=== PATIENT | male | born 1985 | race Caucasian/White ===

== ENCOUNTER 2017-05-06 18:37 | Emergency (ER) | payer SELFPAY ==
[~2017-05-06] VITALS: Ht 177.8 cm; Wt 116.5 kg
[~2017-05-06 18:37] MED LIST: CEPH500C3 PO; IBUP600T26 PO; SULF1TAB47 PO
[2017-05-06 19:24] VITALS: BP 244/125; PULSE 150; RESP 18; TEMP 98; O2SAT 99
--- NOTE | 2017-05-06 20:08 | PD ---
HPI Chief Complaint: Injury Time Seen by Provider: 20:03 Travel History International Travel<30 days: No Contact w/Intl Traveler<30days: No Traveled to known affect area: No History of Present Illness HPI 31-year-old male with history of hypertension, currently not taking any medication, presents the emergency department for evaluation of right ankle pain. Patient states he woke up this morning and he felt like his ankle was swollen. He feels like it might be red on the lateral aspect of the ankle. He denies any injury. Tells me he has been limping all day and the pain is severe , constant, exacerbated with any ambulation. Denies any fever or chills. Denies any alterations in sensations or limitations in range of motion. He has no other symptoms to report. [facility] Past Medical History ADHD: Yes Cardiovascular Problems: Yes (HTN) Diminished Hearing: No Medical other: Yes (Electrocuted 2016) Tetanus Vaccination: Unknown Influenza Vaccination: No Past Surgical History Other Surgery: Yes (Cyst removal ) Social History Alcohol Use: Yes (SOCIALLY) Tobacco Use: No Substance Use: Yes (CBD oil) Allergies-Medications (Allergen,Severity, Reaction): Coded Allergies: penicillin G (Unverified Allergy, Intermediate, 09/23/16) FAMILY HX Reported Meds & Prescriptions Reported Meds & Active Scripts Active No Active Prescriptions or Reported Medications Review of Systems Except as stated in HPI: all other systems reviewed are Neg Physical Exam Narrative GENERAL: Well-nourished male patient, ambulatory with an antalgic gait, in no acute distress SKIN: Focused skin assessment warm/dry. HEAD: Atraumatic. Normocephalic. EYES: Pupils equal and round. No scleral icterus. No injection or drainage. ENT: No nasal bleeding or discharge. Mucous membranes pink and moist. NECK: Trachea midline. No JVD. CARDIOVASCULAR: Tachycardic rate and rhythm. No murmur appreciated. RESPIRATORY: No accessory muscle use. Clear to auscultation. Breath sounds equal bilaterally. GASTROINTESTINAL: Abdomen soft, non-tender, nondistended. Hepatic and splenic margins not palpable. EXTREMITY: The right ankle is not swollen and slightly tender over the lateral aspect but the skin is intact and there is no ligamentous instability. There is no deformity. The foot and toes are warm and well-perfused. Sensation to pain and light touch is intact. NEUROLOGICAL: Awake and alert. No obvious cranial nerve deficits. Motor grossly within normal limits. Normal speech. Data Data Last Documented VS Vital Signs Date Time Temp Pulse Resp B/P (MAP) Pulse Ox O2 Delivery O2 Flow Rate FiO2 05/06/17 21:34 128 17 187/122 (143) 98 Room Air 05/06/17 19:24 98.0 Orders Orders Ankle, Complete ([id number]) (05/06/17 ) Ketorolac Inj (Toradol Inj) (05/06/17 20:15) Sodium Chlor 0.9% 1000 Ml Inj (Ns 1000 M (05/06/17 20:30) Hydralazine Inj (Apresoline Inj) (05/06/17 20:30) Basic Metabolic Panel (Bmp) (05/06/17 21:23) Clonidine (Catapres) (05/06/17 21:30) MDM Medical Decision Making Medical Screen Exam Complete: Yes Emergency Medical Condition: Yes Medical Record Reviewed: Yes Differential Diagnosis Sprain versus fracture versus arthritis versus spur Narrative Course 31-year-old male presents emergency department for evaluation of right ankle pain. Patient is treated for pain and x-ray imaging shows a calcaneal spur, otherwise negative ankle x-ray. Patient when he is here is tachycardic and hypertensive. He does have history of both. In review of his records, patient runs with heart rate greater than 100 typically. He states he did have an energy drink prior to arrival. He also tells me that his blood pressure often runs high. He denies any headache, blurred vision, focal deficits, weakness. Patient is given hydralazine IV 2. BMP is checked. I will give him a dose of clonidine as well. I discussed the patient with my attending physician. We will start him on amlodipine outpatient. He is encouraged to follow-up with a primary care provider and counseled on risk of his blood pressure constantly running this high. He verbalizes understanding and agrees to return immediately with any acute worsening symptoms. Diagnosis Primary Impression: Ankle pain, right Qualified Codes: M25.571 - Pain in right ankle and joints of right foot Additional Impressions: Hypertension Qualified Codes: I10 - Essential (primary) hypertension Tachycardia Referrals: Primary Care Physician Patient Instructions: General Instructions, Heel Spur (ED), Hypertension (DC) Additional Instructions: Miguel Ángel wrap for compression and comfort It is important that you follow-up with your primary care provider. Your blood pressure is too high and you have been started on a medication for this here in the emergency department. It is free at [facility] [place]. Return immediately with any acute worsening symptoms. Med/Other Pt SpecificInfo: Prescription(s) given Scripts Amlodipine (Amlodipine) 10 Mg Tab 10 MG PO DAILY for Blood Pressure Management, #30 TAB 0 Refills Prov: Hilary Alvarez 05/06/17 Disposition: 01 DISCHARGE HOME Condition: Stable Hilary Alvarez May 06, 2017 20:08
[2017-05-06] MEDS ORDERED: KETOROLAC TROMETHAMINE 60 MG/2 ML (IM) VIAL IM ONE (20:15)
[2017-05-06] MEDS ORDERED: hydrALAZINE HCL 20 MG/ML VIAL IV PUSH ONE (20:30)
[2017-05-06] MEDS ORDERED: SODIUM CHLOR 0.9% 1000 ML INJ 1,000 ML IV ONE (20:30)
[2017-05-06 20:57] VITALS: BP 184/115; PULSE 109; RESP 16; O2SAT 97
--- NOTE | 2017-05-06 21:21 | RADRPT ---
EXAM DATE/TIME: 05/06/2017 20:16 [place] COMPARISON: No previous studies available for comparison. INDICATIONS : Right ankle pain with no known injury. MEDICAL HISTORY : None. SURGICAL HISTORY : None. ENCOUNTER: Initial ACUITY: 1 day PAIN SCORE: 10/10 LOCATION: Right lateral ankle. FINDINGS: Three view exam was performed of the right ankle. The bony structures are in normal alignment. No e vidence of fracture, dislocation, or soft tissue swelling. The ankle mortise is intact. Mild calcane al spurs at the plantar aponeurosis and Achilles attachment site are seen. There some mild hypertroph ic change at the distal dorsal talus. No radiopaque foreign bodies are seen. Bony mineralization is normal. CONCLUSION: Calcaneal spurs. Yaw Vann MD on May 06, 2017 at 21:18 Board Certified Radiologist. This report was verified electronically.
[2017-05-06] MEDS ORDERED: cloNIDine HCL 0.1 MG TAB PO ONE (21:30)
[2017-05-06 21:34] VITALS: BP 187/122; PULSE 128; RESP 17; O2SAT 98
[2017-05-06] MEDS ORDERED: AMLO10TA2 PO (21:59)
[2017-05-06 22:15] VITALS: BP 199/115; PULSE 124; RESP 18; O2SAT 97
[2017-05-06] MEDS ORDERED: LORazepam 2 MG/ML VIAL IV PUSH ONE (22:15)
[2017-05-06 22:16] LABS: BICARBONATE 25.9 MEQ/L (21.0-32.0); CALCIUM 8.7 MG/DL (8.5-10.1); CREATININE 1.07 MG/DL (0.60-1.30)
== END 2017-05-07 00:05 | disposition home or self-care (01) ==
LOC: NEPE 18:37
DX: M25.571 Pain in right ankle and joints of right foot (principal); M77.31 Calcaneal spur, right foot; I10 Essential (primary) hypertension; R00.0 Tachycardia, unspecified; F90.9 Attention-deficit hyperactivity disorder, unspecified type; Z88.0 Allergy status to penicillin
CPT/HCPCS: 73610; 80048; 96372; 96374; 96375; 99284; J0360; J1885; J2060; J7030

== ENCOUNTER 2017-08-30 02:40 | Inpatient (IN) ==
[2017-08-30 04:00] LABS: Baso # (Auto) 0.1 th/mm3 (0.0-0.2); Baso % (Auto) 0.9 % (0.0-2.0); Eos # (Auto) 0.1 th/mm3 (0.0-0.4); Eos % (Auto) 0.8 % (0.0-4.0); Hematocrit 46.1 % (39.0-51.0); Hemoglobin 16.5 gm/dL (13.0-17.0); Lymph # (Auto) 1.4 th/mm3 (1.0-4.8); Lymph % (Auto) 15.1 % (9.0-44.0); Mean Corpuscular HGB Conc 35.7 % (32.0-36.0); Mean Corpuscular Hemoglobin 28.5 pg (27.0-34.0); Mean Corpuscular Volume 79.6 fL (80.0-100.0); Mean Platelet Volume 7.8 fL (7.0-11.0); Mono # (Auto) 0.8 th/mm3 (0.0-0.9); Mono % (Auto) 9.2 % (0.0-8.0); Neut # (Auto) 6.7 th/mm3 (1.8-7.7); Platelet Count 236 th/mm3 (150-450); Red Blood Count 5.79 mil/mm3 (4.50-5.90); Red Cell Distribution Width 13.7 % (11.6-17.2); White Blood Count 9.1 th/mm3 (4.0-11.0)
[2017-08-30 04:07] LABS: Activated Partial Thrombo Time 26.8 sec (24.3-30.1); INR 1.1 Ratio; Prothrombin Time 10.7 sec (9.8-11.6)
--- NOTE | 2017-08-30 04:07 | XR ---
EXAM DATE: 08/30/2017 4:00 AM EDT AGE/SEX: 32 years / Male INDICATIONS: Chest pain. CLINICAL DATA: This is the patient's initial encounter. Patient reports that signs and symptoms have been present for 1 day and indicates a pain score of 6/10. MEDICAL/SURGICAL HISTORY: . cervical disk herniation. None. COMPARISON: No prior exams available for comparison. FINDINGS: A single AP view of the chest demonstrates the lungs to be symmetrically hypo-aerated without evidenc e of mass, infiltrate or effusion. The cardiomediastinal contours are unremarkable. Osseous structu res are intact. CONCLUSION: Hypoinflation with no acute cardiopulmonary process Electronically signed by: Bunny Fraser MD 08/30/2017 4:06 AM EDT
[2017-08-30 04:11] LABS: Alanine Aminotransferase 79 U/L (12-78); Albumin 3.8 g/dL (3.4-5.0); Anion Gap 9 meq/L (5-15); Aspartate Aminotransferase 38 U/L (15-37); Blood Urea Nitrogen 12 mg/dL (7-18); Carbon Dioxide 23.8 meq/L (21.0-32.0); Chloride 107 meq/L (98-107); Glomerular Filtration Rate 69 mL/min (>89); Glucose,Random 112 mg/dL (74-106); Magnesium 1.8 mg/dL (1.5-2.5); Potassium 3.4 meq/L (3.5-5.1); Sodium 140 meq/L (136-145)
[2017-08-30 04:15] LABS: Alkaline Phosphatase 81 U/L (45-117); Creatine Kinase 139 U/L (39-308); Total Protein 7.1 g/dL (6.4-8.2)
[2017-08-30 04:23] LABS: Lipase 2190 U/L (73-393)
[2017-08-30 04:28] LABS: Creatine Kinase MB 2.8 ng/mL (0.5-3.6)
[2017-08-30 05:04] LABS: Platelet Estimate Normal (Normal); Platelet Morphology Normal (Normal)
--- NOTE | 2017-08-30 05:07 | ED ---
HPI General Chief complaint: Chest Pain Stated complaint: chest pain Time Seen by Provider: 08/30/17 03:04 Source: patient Mode of arrival: EMS Limitations: no limitations History of Present Illness HPI narrative: The patient is a 32 year old male who presents to the [facility] emergency department with a history of chest pain that began at 1 AM when he was walking around [facility] with a friend prior to arrival. The patient reports that the pain is in the center of his chest. He reports that is been constant since onset. He reports that it waxes and wanes in severity. He reports that it feels like a pounding sensation. He reports that he had shortness of breath associated with this along with lightheaded sensation. He denies having any radiation of pain, diaphoresis, nausea, or vomiting. The patient denies ever having a pain like this previously. The patient reports that he does have a history of hypertension, however he is not currently on any medication since May due to losing his insurance. He denies having a primary care physician. The patient arrives by ambulance services. The patient's blood pressure was reportedly initially 250 systolic. The patient was given 2 sublingual nitroglycerin sprays his blood pressure improved down to 140 systolic. On arrival, the patient's blood pressure is in the 170s. The patient has a heart rate in the 1 teens to low 120s. The patient denies any drug use. He reports that he does have a history of anxiety and was Klonopin previously for this. He reports that he is now on CBD oil for this. On review of systems otherwise, the patient denies having any known recent fevers, cough or congestion, new neck pain, abdominal pain, diarrhea, urinary symptoms, or neurologic symptoms. Related Data Home Medications Medication Instructions Recorded Confirmed No Known Home Medications 08/30/17 08/30/17 Allergies Allergy/AdvReac Type Severity Reaction Status Date / Time penicillin G Allergy Intermediate Swelling Verified 08/30/17 03:36 Review of Systems ROS Unobtainable All other systems reviewed negative except as stated in HPI [facility] Medical History Medical History Anxiety (Acute) Herniated disc (Acute) Hypertension (Acute) Surgical History Surgical History H/O cervical discectomy (Acute) Social History Social History Substance History: No History of Abuse Second Hand Smoke Exposure: No Smoking Status: Former smoker Tobacco Type: Cigarettes Smoking End Date: quit 11/2016 How Often Do You Have a Drink Containing Alcohol: Monthly or less Recent Travel in [facility] within the Last 8 Weeks: No Recent Out of Country Travel within the Last 8 Weeks: No Immunization History Tetanus Immunization: Unsure Hx Influenza Vaccine This Season: No Exam Const General: cooperative, no acute distress and well developed Nutritional Appearance: well nourished Orientation: alert, awake and oriented x3 HENMT Head: normocephalic and atraumatic Nose: no nasal discharge and no epistaxis Mouth: moist mucous membranes Throat: posterior oropharynx normal Eyes Sclera: normal sclerae Pupils: PERRL Neck Neck: no meningeal signs, trachea midline and no JVD Resp Effort & Inspection: no use of accessory muscles Auscultation: clear to auscultation bilaterally Cardio Rate: regular rate Rhythm: regular rhythm Heart Sounds: no murmurs GI Inspection: non-distended Palpation: soft, no hepatosplenomegaly, no guarding, no masses, not rigid and nontender Auscultation: normal bowel sounds Back/Spine/Pelvis Back: CVA tenderness Cervical Spine: No cervical spinal tenderness Thoracic/Lumbar Spine: No thoracic spinal tenderness and No lumbar spinal tenderness Skin General: dry skin (warm) Neuro General: alert, awake and oriented x3 Cranial Nerves: other (No facial asymmetry.) Speech: speech normal Motor: no movement abnormalities noted Extrem General: normal to inspection, no clubbing, no cyanosis and no edema Psych Mood: congruent mood Affect: normal affect Judgment: judgment good Course Consultations Consultation #1: The patient's case including history, pertinent physical examination findings, and laboratory studies were discussed with Dr. Moran. It was agreed that the patient would be admitted to the hospitalist service. Initial Documented Vital Signs Temperature 98.5 F 08/30/17 02:43 Pulse Rate 140 H 08/30/17 02:43 Respiratory Rate 20 08/30/17 02:43 Blood Pressure 162/96 H 08/30/17 02:43 Pulse Oximetry 94 L 08/30/17 02:43 Last Documented Vital Signs Temperature 98.4 F 08/30/17 16:00 Pulse Rate 109 H 08/30/17 16:00 Respiratory Rate 16 08/30/17 16:00 Blood Pressure 134/77 08/30/17 17:40 Pulse Oximetry 97 08/30/17 16:00 Medical Decision Making MDM Narrative Medical decision making narrative: During the course of the patient's emergency department visit, the patient's history, examination, and differential diagnosis were reviewed with the patient. The patient was placed on a monitoring tech with oximetry and frequent blood pressure monitoring. The patient had IV access obtained and blood work sent for analysis. The patient's diagnostic workup was started to evaluate for underlying causes of the patient's chest pain. The patient was initially provided sublingual nitroglycerin, nitroglycerin 1 inch the chest wall, aspirin 324 mg p.o. 1. Laboratory studies are remarkable for his CMP that shows a chemistry within normal troponin I, CPK 139, MB 2.8, glucose 112, potassium 3.4, lipase is elevated at 2190 which certainly could be the cause of the patient's pain. Calcium 8, AST 20 is 38, ALT 79. CT scan of the abdomen and pelvis has been ordered to further evaluate the patient's pancreatitis. The patient's results were discussed with the patient, including the plan of care. I explained that further testing and/ or monitoring is indicated based on the patient's history, examination, and/ or laboratory findings. Therefore, I recommended admission for additional evaluation. The patient expressed understanding and was agreeable with this plan. The patient was admitted to the hospital in stable condition and sent to a bed under the care of [facility] service. Medical Records Medical records reviewed: Yes I reviewed the patient's medical records. Lab Data Lab results reviewed: Yes I reviewed the patient's lab results. Result diagrams: 08/30/17 03:38 08/30/17 03:38 Lab Results 08/30/17 08/30/17 08/30/17 Range/Units 03:38 03:38 03:38 WBC 9.1 (4.0-11.0) th/mm3 RBC 5.79 (4.50-5.90) mil/mm3 Hgb 16.5 (13.0-17.0) gm/dL Hct 46.1 (39.0-51.0) % MCV 79.6 L (80.0-100.0) fL MCH 28.5 (27.0-34.0) pg MCHC 35.7 (32.0-36.0) % RDW 13.7 (11.6-17.2) % Plt Count 236 (150-450) th/mm3 MPV 7.8 (7.0-11.0) fL Prelim Diff (Auto) Slide review pending Neut % (Auto) 74.0 H (16.0-70.0) % Lymph % (Auto) 15.1 (9.0-44.0) % Meade % (Auto) 9.2 H (0.0-8.0) % Eos % (Auto) 0.8 (0.0-4.0) % Baso % (Auto) 0.9 (0.0-2.0) % Neut # (Auto) 6.7 (1.8-7.7) th/mm3 Lymph # (Auto) 1.4 (1.0-4.8) th/mm3 Meade # (Auto) 0.8 (0.0-0.9) th/mm3 Eos # (Auto) 0.1 (0.0-0.4) th/mm3 Baso # (Auto) 0.1 (0.0-0.2) th/mm3 WBC Differential . Diff Scan Auto diff confirmed Differential Comment . Platelet Estimate Normal (Normal) Platelet Morphology Normal (Normal) PT 10.7 (9.8-11.6) sec INR 1.1 Ratio APTT 26.8 (24.3-30.1) sec Sodium 140 (136-145) meq/L Potassium 3.4 L (3.5-5.1) meq/L Chloride 107 (98-107) meq/L Carbon Dioxide 23.8 (21.0-32.0) meq/L Anion Gap 9 (5-15) meq/L BUN 12 (7-18) mg/dL Creatinine 1.21 (0.60-1.30) mg/dL Estimated GFR 69 L (>89) mL/min Random Glucose 112 H (74-106) mg/dL Calcium 8.0 L (8.5-10.1) mg/dL Magnesium 1.8 (1.5-2.5) mg/dL Total Bilirubin 0.5 (0.2-1.0) mg/dL AST 38 H (15-37) U/L ALT 79 H (12-78) U/L Alkaline Phosphatase 81 (45-117) U/L Total Creatine Kinase 139 (39-308) U/L CK-MB (CK-2) 2.8 (0.5-3.6) ng/mL Troponin I Less than 0.02 L (0.02-0.05) ng/mL B-Natriuretic Peptide (0-100) pg/mL Total Protein 7.1 (6.4-8.2) g/dL Albumin 3.8 (3.4-5.0) g/dL Lipase 2190 H (73-393) U/L Urine Color (Yellw/Straw) Urine Clarity (Clear) Urine pH (5.0-8.5) Ur Specific Narrows (1.002-1.035) Urine Protein (Neg-Trace) mg/dL Urine Glucose (UA) (Negative) mg/dL Urine Ketones (Negative) mg/dL Urine Occult Blood (Negative) Urine Nitrate (Negative) Urine Bilirubin (Negative) Urine Urobilinogen (Less than 2) mg/dL Ur Leukocyte Esterase (Negative) Uric Acid Crystals (None) /hpf Urine Mucus (Occasional) /lpf Micro UA Comment Urine Culture Comments Urine Opiates Screen (Neg) Ur Barbiturates Screen (Neg) Ur Amphetamines Screen (Neg) U Benzodiazepines Scrn (Neg) Urine Cocaine Screen (Neg) U Cannabinoids Screen (Neg) Hepatitis A IgM Ab (Nonreactive) Hep Bs Antigen (Nonreactive) Hep B Core IgM Ab (Nonreactive) Hep C IgG Ab (Nonreactive) 08/30/17 08/30/17 08/30/17 Range/Units 03:38 06:00 06:00 WBC (4.0-11.0) th/mm3 RBC (4.50-5.90) mil/mm3 Hgb (13.0-17.0) gm/dL Hct (39.0-51.0) % MCV (80.0-100.0) fL MCH (27.0-34.0) pg MCHC (32.0-36.0) % RDW (11.6-17.2) % Plt Count (150-450) th/mm3 MPV (7.0-11.0) fL Prelim Diff (Auto) Neut % (Auto) (16.0-70.0) % Lymph % (Auto) (9.0-44.0) % Meade % (Auto) (0.0-8.0) % Eos % (Auto) (0.0-4.0) % Baso % (Auto) (0.0-2.0) % Neut # (Auto) (1.8-7.7) th/mm3 Lymph # (Auto) (1.0-4.8) th/mm3 Meade # (Auto) (0.0-0.9) th/mm3 Eos # (Auto) (0.0-0.4) th/mm3 Baso # (Auto) (0.0-0.2) th/mm3 WBC Differential Diff Scan Differential Comment Platelet Estimate (Normal) Platelet Morphology (Normal) PT (9.8-11.6) sec INR Ratio APTT (24.3-30.1) sec Sodium (136-145) meq/L Potassium (3.5-5.1) meq/L Chloride (98-107) meq/L Carbon Dioxide (21.0-32.0) meq/L Anion Gap (5-15) meq/L BUN (7-18) mg/dL Creatinine (0.60-1.30) mg/dL Estimated GFR (>89) mL/min Random Glucose (74-106) mg/dL Calcium (8.5-10.1) mg/dL Magnesium (1.5-2.5) mg/dL Total Bilirubin (0.2-1.0) mg/dL AST (15-37) U/L ALT (12-78) U/L Alkaline Phosphatase (45-117) U/L Total Creatine Kinase (39-308) U/L CK-MB (CK-2) (0.5-3.6) ng/mL Troponin I (0.02-0.05) ng/mL B-Natriuretic Peptide Less than 2 (0-100) pg/mL Total Protein (6.4-8.2) g/dL Albumin (3.4-5.0) g/dL Lipase (73-393) U/L Urine Color Yellow (Yellw/Straw) Urine Clarity Hazy H (Clear) Urine pH 5.0 (5.0-8.5) Ur Specific [place] 1.020 (1.002-1.035) Urine Protein Negative (Neg-Trace) mg/dL Urine Glucose (UA) Negative (Negative) mg/dL Urine Ketones Negative (Negative) mg/dL Urine Occult Blood Negative (Negative) Urine Nitrate Negative (Negative) Urine Bilirubin Negative (Negative) Urine Urobilinogen Less than 2 (Less than 2) mg/dL Ur Leukocyte Esterase Negative (Negative) Uric Acid Crystals Few H (None) /hpf Urine Mucus Few H (Occasional) /lpf Micro UA Comment Culture not ind Urine Culture Comments Culture not ind Urine Opiates Screen Neg (Neg) Ur Barbiturates Screen Neg (Neg) Ur Amphetamines Screen Neg (Neg) U Benzodiazepines Scrn Neg (Neg) Urine Cocaine Screen Neg (Neg) U Cannabinoids Screen Neg (Neg) Hepatitis A IgM Ab (Nonreactive) Hep Bs Antigen (Nonreactive) Hep B Core IgM Ab (Nonreactive) Hep C IgG Ab (Nonreactive) 08/30/17 08/30/17 08/30/17 Range/Units 10:40 12:25 13:44 WBC (4.0-11.0) th/mm3 RBC (4.50-5.90) mil/mm3 Hgb (13.0-17.0) gm/dL Hct (39.0-51.0) % MCV (80.0-100.0) fL MCH (27.0-34.0) pg MCHC (32.0-36.0) % RDW (11.6-17.2) % Plt Count (150-450) th/mm3 MPV (7.0-11.0) fL Prelim Diff (Auto) Neut % (Auto) (16.0-70.0) % Lymph % (Auto) (9.0-44.0) % Meade % (Auto) (0.0-8.0) % Eos % (Auto) (0.0-4.0) % Baso % (Auto) (0.0-2.0) % Neut # (Auto) (1.8-7.7) th/mm3 Lymph # (Auto) (1.0-4.8) th/mm3 Meade # (Auto) (0.0-0.9) th/mm3 Eos # (Auto) (0.0-0.4) th/mm3 Baso # (Auto) (0.0-0.2) th/mm3 WBC Differential Diff Scan Differential Comment Platelet Estimate (Normal) Platelet Morphology (Normal) PT (9.8-11.6) sec INR Ratio APTT (24.3-30.1) sec Sodium (136-145) meq/L Potassium (3.5-5.1) meq/L Chloride (98-107) meq/L Carbon Dioxide (21.0-32.0) meq/L Anion Gap (5-15) meq/L BUN (7-18) mg/dL Creatinine (0.60-1.30) mg/dL Estimated GFR (>89) mL/min Random Glucose (74-106) mg/dL Calcium (8.5-10.1) mg/dL Magnesium (1.5-2.5) mg/dL Total Bilirubin (0.2-1.0) mg/dL AST (15-37) U/L ALT (12-78) U/L Alkaline Phosphatase (45-117) U/L Total Creatine Kinase (39-308) U/L CK-MB (CK-2) (0.5-3.6) ng/mL Troponin I Less than 0.02 L Less than 0.02 L (0.02-0.05) ng/mL B-Natriuretic Peptide (0-100) pg/mL Total Protein (6.4-8.2) g/dL Albumin (3.4-5.0) g/dL Lipase (73-393) U/L Urine Color (Yellw/Straw) Urine Clarity (Clear) Urine pH (5.0-8.5) Ur Specific [place] (1.002-1.035) Urine Protein (Neg-Trace) mg/dL Urine Glucose (UA) (Negative) mg/dL Urine Ketones (Negative) mg/dL Urine Occult Blood (Negative) Urine Nitrate (Negative) Urine Bilirubin (Negative) Urine Urobilinogen (Less than 2) mg/dL Ur Leukocyte Esterase (Negative) Uric Acid Crystals (None) /hpf Urine Mucus (Occasional) /lpf Micro UA Comment Urine Culture Comments Urine Opiates Screen (Neg) Ur Barbiturates Screen (Neg) Ur Amphetamines Screen (Neg) U Benzodiazepines Scrn (Neg) Urine Cocaine Screen (Neg) U Cannabinoids Screen (Neg) Hepatitis A IgM Ab Nonreactive (Nonreactive) Hep Bs Antigen Nonreactive (Nonreactive) Hep B Core IgM Ab Nonreactive (Nonreactive) Hep C IgG Ab Nonreactive (Nonreactive) Imaging Data Radiologist's impression: Gallbladder Ultrasound 08/30/17 00:00 CONCLUSION: 1. Suboptimal visualization. 2. Hepatic steatosis with no focal lesion identified. 3. Unremarkable appearing gallbladder with no evidence of cholelithiasis. 4. Horseshoe kidney. Chest X-Ray 08/30/17 03:23 CONCLUSION: Hypoinflation with no acute cardiopulmonary process Abdomen/Pelvis CT 08/30/17 05:23 CONCLUSION: 1. Diffuse hepatic fatty infiltration. 2. Horseshoe kidney. 3. 6.6 cm left inguinal hernia which only contains fat. 4. Otherwise, no acute intraperitoneal or pelvic process to explain current clinical symptoms. ECG Data Attestation: I personally reviewed and interpreted this ECG as follows: Interpretation: The patient had an EKG done on arrival. The patient's EKG reveals a sinus tachycardia rate 120, QRS duration 101 ms, QTC [address] segment elevation, nonspecific ST-T wave abnormalities including T- wave inversions in leads I, aVL, V5, V6. Discharge Plan Discharge Disposition Patient Disposition: 30 Still Patient Discharge Details Diagnosis: Acute pancreatitis, Atypical chest pain Physicians Team ED Provider: Carol Mata Primary Care Provider: Primary Care Michelle Valadez Attending Provider: Geovani Lazo Discharge Interventions Interventions: ED Discharge Assessment Last Done: 08/30/17 08:18 Status ED Status: Left Department Discharge Information Discharge Date/Time: 08/30/17 08:19
[2017-08-30] MEDS ORDERED: Labetalol HCl Inj 100 MG/20 ML Vial IV.PUSH ONE (05:20)
[2017-08-30] MEDS ORDERED: Sod Chloride 0.9% Inj 1,000 ML IV.SIG ONE (05:25)
[2017-08-30] MEDS ORDERED: Morphine Inj 4 MG/ML Vial IV.PUSH ONE (05:25)
[2017-08-30] MEDS ORDERED: Temazepam 15 MG Capsule PO PRN (05:56)
[2017-08-30] MEDS ORDERED: Bisacodyl 10 MG Supp RECTAL PRN (05:56)
--- NOTE | 2017-08-30 06:19 | CT ---
EXAM DATE: 08/30/2017 6:05 AM EDT AGE/SEX: 32 years / Male INDICATIONS: Epigastric pain; possible pancreatitis. CLINICAL DATA: This is the patient's initial encounter. Patient reports that signs and symptoms have been present for 1 day and indicates a pain score of 7/10. MEDICAL/SURGICAL HISTORY: None. None. ORAL CONTRAST: No oral contrast ingested. RADIATION DOSE: 19.99 CTDI (mGy) COMPARISON: No prior exams available for comparison. TECHNIQUE: Multiple contiguous axial images were obtained through the abdomen and pelvis following b olus infusion of 96 ml Omnipaque 350 (iohexol) nonionic water-soluble contrast as a single exam dos e. No oral contrast ingested. Using automated exposure control and adjustment of the mA and/or kV ac cording to patient size, radiation dose was kept as low as reasonably achievable to obtain optimal di agnostic quality images. DICOM format image data is available electronically for review and comparis on. FINDINGS: Lower Lungs: The visualized lower lungs are clear. Liver: Diminished attenuation characteristic of diffuse hepatic fatty infiltration Spleen: Homogeneous density without enlargement. Pancreas: Unremarkable without mass or calcification. Kidneys: Horseshoe kidney. Otherwise intact Adrenal Glands: Unremarkable. Aorta: The aorta and proximal iliac vessels are grossly unremarkable without aneurysmal dilation. Bowel/Mesentery: The bowel loops are grossly unremarkable. The cecum and sigmoid colon have a normal configuration. Abdominal Wall: Intact. Retroperitoneum: No evidence of adenopathy in the retrocrural, para-aortic, or deep pelvic regions. Bladder: Contours are smooth. Reproductive Organs: No abnormal masses or calcifications seen. Inguinal: Large, explaining 6 cm left inguinal hernia which only contains fat Bony Structures: Unremarkable. Post Contrast: No abnormal areas of enhancement seen. CONCLUSION: 1. Diffuse hepatic fatty infiltration. 2. Horseshoe kidney. 3. 6.6 cm left inguinal hernia which only contains fat. 4. Otherwise, no acute intraperitoneal or pelvic process to explain current clinical symptoms. Electronically signed by: Bunny Fraser MD 08/30/2017 6:17 AM EDT
[2017-08-30 06:36] LABS: Amphetamine Screen,Urine Neg (Neg); Barbiturate Screen,Urine Neg (Neg); Cannabinoid Screen,Urine Neg (Neg); Cocaine Screen,Urine Neg (Neg)
[2017-08-30 06:38] LABS: Bilirubin,Urine Negative (Negative); Clarity,Urine Hazy (Clear); Color,Urine Yellow (Yellw/Straw); Glucose,Urine (UA) Negative (Negative); Leukocyte Esterase,Urine Negative (Negative); Mucus,Urine Few /lpf (Occasional); Nitrite,Urine Negative (Negative); Uric Acid Crystals,Urine Few /hpf
[2017-08-30 06:40] LABS: Opiate Screen,Urine Neg (Neg)
--- NOTE | 2017-08-30 09:27 | P.HPIM ---
History of Present Illness Primary Care Physician: No Primary Care Physician Chief Complaint: chest pain History of Present Illness: patient is a 32 y/o male with history of hypertension, non-compliant with the medications, presented to ER with chest pain. he says that the pain started last night. pain was midsternal with no radiation.he denies any nausea,vomiting , sob or diaphoresis. he doesn't recall any similar chest pain in the past. he says that he was on some blood pressure medication for one month, but then he lost his insurance and since then he hasn't been on any medications. Inpatient Certification: I certify that the inpatient services were ordered in accordance with Medicare regulations governing the order. This includes certification that hospital inpatient services are reasonable and necessary and in the case of services not specified as inpatient-only under 42 CFR 419.22(n), that they are appropriately provided as inpatient services in accordance to with the 2-midnight benchmark under 43 CFR 412.3(e) Estimated Total Length of Stay (Days): 2 Plans for Post Hospital Care: Not yet determined Review of Systems All other systems reviewed negative except as stated in [facility]PI [facility] - History History Provided By: Patient - Medical History Medical History: Medical History (Last Updated 08/30/17 @ 02:47 by Michaela Moreno) Anxiety Herniated disc Hypertension - Surgical History Surgical History: Surgical History (Last Updated 08/30/17 @ 02:47 by Michaela Moreno) H/O cervical discectomy - Tobacco History Tobacco Use In Past 30 Days: No Smoking Status: Former smoker Smoking End Date: quit 11/2016 - Alcohol History How Often Do You Have a Drink Containing Alcohol: Monthly or less - Substance Use History Substance History: No History of Abuse - Travel History Recent Travel in the [place] Within the Last 8 Weeks: No Recent Travel Out of the Country Within the Last 8 Weeks: No - Immunization History Tetanus Immunization: Unsure Hx Influenza Vaccine This Season: No Medications and Allergies Active Medications: Active Medications Al Hydroxide/Mg Hydroxide (Milk Of Magncarina Liq) 30 ml PO Q12H PRN PRN Reason: Mild Constipation Bisacodyl (Dulcolax Supp) 10 mg RECTAL DAILY PRN PRN Reason: SEVERE CONSITIPATION Sodium Chloride (Ns Inj) 1,000 mls @ 125 mls/hr IV.CONT .Q8H VERONICA Potassium Chloride (Kcl 10 Meq Premix Inj) 10 meq in 100 mls @ 100 mls/hr IV.SIG Q1H VERONICA Stop: 08/30/17 09:59 Lactulose (Lactulose Liq) 30 ml PO DAILY PRN PRN Reason: SEVERE CONSITIPATION Ondansetron HCl (Zofran Odt) 4 mg PO Q6H PRN PRN Reason: NAUSEA OR VOMITING Senna/Docusate Sodium (Melvi-Colace) 1 tab PO BID VERONICA Sennosides (Senokot) 17.2 mg PO Q12H PRN PRN Reason: Moderate Constipation Sodium Chloride (Ns Flush) 2 ml IV.FLUSH UNSCH PRN PRN Reason: FLUSH AFTER USING IV ACCESS Temazepam (Restoril) 15 mg PO HS PRN PRN Reason: INSOMNIA Allergies Allergy/AdvReac Type Severity Reaction Status Date / Time penicillin G Allergy Intermediate Swelling Verified 08/30/17 03:36 Home Medications Medication Instructions Recorded Confirmed Type No Known Home Medications 08/30/17 08/30/17 History Exam Vital signs: Vital Signs 08/30/17 02:43 08/30/17 04:18 08/30/17 06:03 Temperature 98.5 F Pulse Rate 140 H 115 H Respiratory Rate 20 20 Blood Pressure 162/96 H 160/92 H Pulse Oximetry 94 L 95 96 08/30/17 06:50 08/30/17 07:10 08/30/17 08:59 Temperature 98.4 F Pulse Rate 95 H 92 H 105 H Respiratory Rate 18 20 16 Blood Pressure 142/85 H 145/86 H 175/99 H Pulse Oximetry 98 96 97 Intake & Output 08/29/17 08/30/17 08/30/17 18:59 06:59 18:59 Weight 122.47 kg - Constitutional no acute distress - Routine Neck Exam Present: supple, full ROM - Routine Chest/Breast/Axilla Exam Chest wall: Present: tenderness - Routine Respiratory Exam Present: CTA bilaterally - Routine Cardiovascular Exam Present: RRR - Routine Abdominal Exam Present: soft - Routine Extremities Exam Comments: no pedal edema. - Routine Neurological Exam Present: alert, oriented X3 Results - Labs CBC & Chem 7: 08/30/17 03:38 08/30/17 03:38 Labs: Short CBC 08/30/17 Range/Units 03:38 WBC 9.1 (4.0-11.0) th/mm3 Hgb 16.5 (13.0-17.0) gm/dL Hct 46.1 (39.0-51.0) % Plt Count 236 (150-450) th/mm3 BMP 08/30/17 03:38 Sodium 140 Potassium 3.4 L Chloride 107 Carbon Dioxide 23.8 BUN 12 Creatinine 1.21 Calcium 8.0 L Cardiac Enzymes 08/30/17 Range/Units 03:38 Total Creatine Kinase 139 (39-308) U/L CK-MB (CK-2) 2.8 (0.5-3.6) ng/mL Troponin I Less than 0.02 L (0.02-0.05) ng/mL Liver Function 08/30/17 Range/Units 03:38 Total Bilirubin 0.5 (0.2-1.0) mg/dL AST 38 H (15-37) U/L ALT 79 H (12-78) U/L Alkaline Phosphatase 81 (45-117) U/L Albumin 3.8 (3.4-5.0) g/dL Urine 08/30/17 Range/Units 06:00 Urine Color Yellow (Yellw/Straw) Urine Clarity Hazy H (Clear) Urine pH 5.0 (5.0-8.5) Ur Specific Neligh 1.020 (1.002-1.035) Urine Protein Negative (Neg-Trace) mg/dL Urine Glucose (UA) Negative (Negative) mg/dL - Imaging Impressions Chest X-Ray 08/30/17 03:23 CONCLUSION: Hypoinflation with no acute cardiopulmonary process Abdomen/Pelvis CT 08/30/17 05:23 CONCLUSION: 1. Diffuse hepatic fatty infiltration. 2. Horseshoe kidney. 3. 6.6 cm left inguinal hernia which only contains fat. 4. Otherwise, no acute intraperitoneal or pelvic process to explain current clinical symptoms. Caprini VTE Risk Assessment Caprini VTE Risk Assessment: No/Low Risk (score <= 1) Caprini Risk Assessment Model: Point Value = 1 Point Value = 2 Point Value = 3 Point Value = 5 Age 41-60 Minor surgery BMI > 25 kg/m2 Swollen legs Varicose veins or History of unexplained or recurrent spontaneous Oral contraceptives or hormone replacement Sepsis (< 1 month) Serious lung disease, including pneumonia (< 1 month) Abnormal pulmonary function Acute myocardial infarction Congestive heart failure (< 1 month) History of inflammatory bowel disease Medical patient at bed rest Age 61-74 Arthroscopic surgery Major open surgery (> 45 min) Laparoscopic surgery (> 45 min) Malignancy Confined to bed (> 72 hours) Immobilizing plaster cast Central venous access Age >= 75 History of VTE Family history of VTE Factor V Leiden Prothrombin [id number] Lupus anticoagulant Anticardiolipin antibodies Elevated serum homocysteine Heparin-induced thrombocytopenia Other congenital or acquired thrombophilia Stroke (< 1 month) Elective arthroplasty Hip, pelvis, or leg fracture Acute spinal cord injury (< 1 month) Prophylaxis Regimen: Total Risk Factor Score Risk Level Prophylaxis Regimen 0-1 Low Early ambulation 2 Moderate Order ONE of the following: *Sequential Compression Device (SCD) *Heparin 5000 units SQ BID 3-4 Higher Order ONE of the following medications: *Heparin 5000 units SQ TID *Enoxaparin/Lovenox 40 mg SQ daily (WT < 150 kg, CrCl > 30 mL/min) *Enoxaparin/Lovenox 30 mg SQ daily (WT < 150 kg, CrCl > 10-29 mL/min) *Enoxaparin/Lovenox 30 mg SQ BID (WT < 150 kg, CrCl > 30 mL/min) AND/OR *Sequential Compression Device (SCD) 5 or more Highest Order ONE of the following medications: *Heparin 5000 units SQ TID (Preferred with Epidurals) *Enoxaparin/Lovenox 40 mg SQ daily (WT < 150 kg, CrCl > 30 mL/min) *Enoxaparin/Lovenox 30 mg SQ daily (WT < 150 kg, CrCl > 10-29 mL/min) *Enoxaparin/Lovenox 30 mg SQ BID (WT < 150 kg, CrCl > 30 mL/min) AND *Sequential Compression Device (SCD) Assessment and Plan - Plan A/P - acute pancreatitis start on clear liquid diet- continue with supportive care including IV fluid- check GB sonogram- -chest pain repeat the troponin level- will consider stress test. -elevated LFT's- check the hepatitis panel. liver US. -hypertension; start on Amlodipine. continue to monitor. Discharge Planning: when w/u is completed.
[2017-08-30] MEDS: Senna/Docusate Sodium 8.6/50 MG Tablet PO SCH ×2 (10:14→21:44)
[2017-08-30] MEDS: amLODIPine 5 MG Tablet PO SCH (10:17)
[2017-08-30] MEDS: Sod Chloride 0.9% Inj 1,000 ML IV.CONT SCH ×3 (11:24→19:30)
[2017-08-30] MEDS: Potassium Chlor 10 mEq Premix 10 MEQ/100 ML PIGGYBACK IV.SIG SCH ×3 (11:24→14:50)
--- NOTE | 2017-08-30 11:56 | US ---
EXAM DATE: 08/30/2017 11:25 AM EDT AGE/SEX: 32 years / Male INDICATIONS: Right upper quadrant pain. Or shoe kidney seen on CT. CLINICAL DATA: This is the patient's initial encounter. Patient reports that signs and/or symptoms h ave been present for 1 day and indicates a pain score of 6/10. MEDICAL/SURGICAL HISTORY: Hypertension. Anxiety. Herniated disc. Discectomy, cervical. COMPARISON: [facility] [place] PELVIS W CONTRAST, 08/30/2017. . MEASUREMENTS: Liver:__ 15.3 cm. Common Bile Duct:__ Nonvisualized. FINDINGS: Utilization was suboptimal secondary to overlying bowel gas and patient's body habitus. Liver: Increased in echotexture without focal lesion or ductal dilation. Portal Vein: Portal vein flow not visualized. Common Duct: Could not be visualized. Gallbladder: Demonstrates no wall thickening or pericholecystic fluid. No stones visualized. Pancreas: Not well visualized. Right Kidney: Normal echotexture and cortical thickness. No mass or hydronephrosis. A horseshoe kidn ey is again visualized. Other: None. CONCLUSION: 1. Suboptimal visualization. 2. Hepatic steatosis with no focal lesion identified. 3. Unremarkable appearing gallbladder with no evidence of cholelithiasis. 4. Horseshoe kidney. Electronically signed by: Porfirio Ramos MD 08/30/2017 11:55 AM EDT
[2017-08-30 14:30] LABS: Hepatitits B Surface Antigen Nonreactive (Nonreactive)
[2017-08-30 14:37] LABS: Hepatitis A IgM Antibody Nonreactive (Nonreactive)
[2017-08-30] MEDS ORDERED: Potassium Chlor 10 mEq Premix 10 MEQ/100 ML PIGGYBACK IV.SIG SCH (14:45)
--- NOTE | 2017-08-30 23:45 | ECG ---
Date Performed: 08/30/2017 Time Performed: 03:12:17 PTAGE: 32 years EKG: SINUS TACHYCARDIA ST DEVIATION AND MODERATE T-WAVE ABNORMALITY, CONSIDER LATERAL ISCHEMIA A BNORMAL ECG PREVIOUS TRACING : 02/03/2013 20.14 Since the previous tracing, no significant change noted DOCTOR: Jd Denney Interpretating Date/Time 08/30/2017 23:42:56
[2017-08-31] MEDS: Sod Chloride 0.9% Inj 1,000 ML IV.CONT SCH ×2 (03:16→12:13)
[2017-08-31 06:01] LABS: Baso # (Auto) 0.1 th/mm3 (0.0-0.2); Baso % (Auto) 0.6 % (0.0-2.0); Eos # (Auto) 0.2 th/mm3 (0.0-0.4); Eos % (Auto) 1.3 % (0.0-4.0); Hematocrit 46.7 % (39.0-51.0); Hemoglobin 16.4 gm/dL (13.0-17.0); Lymph # (Auto) 2.5 th/mm3 (1.0-4.8); Lymph % (Auto) 17.8 % (9.0-44.0); Mean Corpuscular Hemoglobin 27.8 pg (27.0-34.0); Mean Corpuscular Volume 79.2 fL (80.0-100.0); Mean Platelet Volume 7.6 fL (7.0-11.0); Mono # (Auto) 1.5 th/mm3 (0.0-0.9); Mono % (Auto) 10.6 % (0.0-8.0); Neut # (Auto) 9.6 th/mm3 (1.8-7.7); Neut % (Auto) 69.7 % (16.0-70.0); Platelet Count 239 th/mm3 (150-450); Red Cell Distribution Width 13.9 % (11.6-17.2); White Blood Count 13.8 th/mm3 (4.0-11.0)
[2017-08-31 06:24] LABS: Alanine Aminotransferase 67 U/L (12-78); Albumin 3.7 g/dL (3.4-5.0); Anion Gap 7 meq/L (5-15); Aspartate Aminotransferase 24 U/L (15-37); Blood Urea Nitrogen 9 mg/dL (7-18); Calcium 8.1 mg/dL (8.5-10.1); Carbon Dioxide 23.9 meq/L (21.0-32.0); Chloride 107 meq/L (98-107); Glomerular Filtration Rate 84 mL/min (>89); Glucose,Random 97 mg/dL (74-106); Lipase 130 U/L (73-393); Potassium 3.7 meq/L (3.5-5.1); Sodium 138 meq/L (136-145)
[2017-08-31 06:25] LABS: Alkaline Phosphatase 87 U/L (45-117); Total Protein 7.1 g/dL (6.4-8.2)
[2017-08-31] MEDS: amLODIPine 5 MG Tablet PO SCH (08:09)
[2017-08-31] MEDS: Senna/Docusate Sodium 8.6/50 MG Tablet PO SCH ×2 (08:10→21:07)
--- NOTE | 2017-08-31 10:42 | P.PNIM ---
Subjective Interval history: in no acute distress. denies abdominal pain, nausea or vomiting. no chest pain or sob. Physical Exam Vital signs: Vital Signs 08/30/17 12:00 08/30/17 13:24 08/30/17 16:00 Temperature 97.9 F 98.4 F Pulse Rate 89 114 H 109 H Respiratory Rate 18 16 Blood Pressure 168/98 H 177/110 H Pulse Oximetry 95 97 08/30/17 17:40 08/30/17 19:00 08/30/17 20:00 Temperature 98.1 F Pulse Rate 103 H 100 H Respiratory Rate 18 Blood Pressure 134/77 105/83 Pulse Oximetry 97 08/30/17 23:51 08/31/17 00:00 08/31/17 03:51 Temperature 98.3 F Pulse Rate 104 H 105 H 77 Respiratory Rate 18 Blood Pressure 169/105 H Pulse Oximetry 96 08/31/17 04:00 Temperature 98.9 F Pulse Rate 86 Respiratory Rate 18 Blood Pressure 192/100 H Pulse Oximetry 95 Intake & Output 08/30/17 08/31/17 08/31/17 18:59 06:59 18:59 Intake Total 200 / 200 1222 / 1222 Output Total 1400 / 1400 Balance -1200 / -1200 1222 / 1222 Weight 124.3 kg Intake: IV 200 / 200 1000 / 1000 NS Inj 1,000 ML @ 125 mls/hr IV 1000 / 1000 .CONT .Q8H VERONICA Rx#:[id number] KCl 10 mEq Premix Inj 10 meq In 200 / 200 100 ml @ 100 mls/hr IV.SIG Q1H VERONICA Rx#:[id number] Oral 222 / 222 Output: Urine 1400 / 1400 Other: # Voids 2 - Constitutional no acute distress - Routine Respiratory Exam Present: CTA bilaterally - Routine Cardiovascular Exam Present: RRR - Routine Abdominal Exam Present: soft - Routine Extremities Exam Comments: no pedal edema. - Routine Neurological Exam Present: alert, oriented X3 Results - Labs CBC & Chem 7: 08/31/17 05:30 08/31/17 05:30 Laboratory Results - last 24 hr 08/30/17 08/30/17 08/30/17 10:40 12:25 13:44 WBC RBC Hgb Hct MCV MCH MCHC RDW Plt Count MPV Neut % (Auto) Lymph % (Auto) Carlton % (Auto) Eos % (Auto) Baso % (Auto) Neut # (Auto) Lymph # (Auto) Carlton # (Auto) Eos # (Auto) Baso # (Auto) WBC Differential Differential Comment Sodium Potassium Chloride Carbon Dioxide Anion Gap BUN Creatinine Estimated GFR Random Glucose Calcium Total Bilirubin AST ALT Alkaline Phosphatase Troponin I Less than 0.02 L Less than 0.02 L Total Protein Albumin Lipase Hepatitis A IgM Ab Nonreactive Hep Bs Antigen Nonreactive Hep B Core IgM Ab Nonreactive Hep C IgG Ab Nonreactive 08/31/17 08/31/17 05:30 05:30 WBC 13.8 H RBC 5.90 Hgb 16.4 Hct 46.7 MCV 79.2 L MCH 27.8 MCHC 35.0 RDW 13.9 Plt Count 239 MPV 7.6 Neut % (Auto) 69.7 Lymph % (Auto) 17.8 Carlton % (Auto) 10.6 H Eos % (Auto) 1.3 Baso % (Auto) 0.6 Neut # (Auto) 9.6 H Lymph # (Auto) 2.5 Carlton # (Auto) 1.5 H Eos # (Auto) 0.2 Baso # (Auto) 0.1 WBC Differential . Differential Comment Auto diff final Sodium 138 Potassium 3.7 Chloride 107 Carbon Dioxide 23.9 Anion Gap 7 BUN 9 Creatinine 1.02 Estimated GFR 84 L Random Glucose 97 Calcium 8.1 L Total Bilirubin 1.7 H AST 24 ALT 67 Alkaline Phosphatase 87 Troponin I Total Protein 7.1 Albumin 3.7 Lipase 130 Hepatitis A IgM Ab Hep Bs Antigen Hep B Core IgM Ab Hep C IgG Ab - Imaging Impressions Gallbladder Ultrasound 08/30/17 00:00 CONCLUSION: 1. Suboptimal visualization. 2. Hepatic steatosis with no focal lesion identified. 3. Unremarkable appearing gallbladder with no evidence of cholelithiasis. 4. Horseshoe kidney. Assessment and Plan - Plan A/P - acute pancreatitis- clinically has much improved. advance the diet- continue with supportive care including IV fluid- GB sonogram with no cholelithiasis. -chest pain- has resolved. troponin negative- stress test today. -elevated LFT's- improved overall- hepatitis panel negative- -hypertension; started on Amlodipine. continue to monitor. Discharge Planning: when w/u is completed.
[2017-08-31] MEDS ORDERED: ALPRAZolam 0.25 MG Tablet PO ONE (21:20)
--- NOTE | 2017-09-01 08:47 | P.PNIM ---
Subjective Interval history: in no acute distress. resting comfortably. BP trend noted. denies chest pain, sob or abdominal pain. Physical Exam Vital signs: Vital Signs 08/31/17 11:56 08/31/17 12:00 08/31/17 15:22 Temperature 98.1 F Pulse Rate 88 113 H Respiratory Rate 17 Blood Pressure 188/112 H 176/96 H Pulse Oximetry 99 08/31/17 17:00 08/31/17 17:41 08/31/17 20:00 Temperature 98.5 F Pulse Rate 86 105 H Respiratory Rate 20 18 Blood Pressure 195/113 H 192/95 H Pulse Oximetry 98 08/31/17 22:43 09/01/17 00:00 09/01/17 04:00 Temperature 98.1 F Pulse Rate 82 74 Respiratory Rate 18 Blood Pressure 171/101 H 162/99 H Pulse Oximetry 98 09/01/17 06:00 09/01/17 06:30 Temperature 97.3 F L Pulse Rate 69 Respiratory Rate 18 Blood Pressure 168/96 H 158/84 H Pulse Oximetry 97 Intake & Output 08/31/17 09/01/17 09/01/17 18:59 06:59 18:59 Intake Total 740 / 740 240 / 240 Output Total 1200 / 1200 450 / 450 Balance -460 / -460 -210 / -210 Weight 124.1 kg Intake: Oral 740 / 740 240 / 240 Output: Urine 1200 / 1200 450 / 450 Other: Date of Last Bowel Movement 08/31/17 # Bowel Movements 0 0 - Constitutional no acute distress - Routine Respiratory Exam Present: CTA bilaterally - Routine Cardiovascular Exam Present: RRR - Routine Abdominal Exam Present: soft - Routine Extremities Exam Comments: no pedal edema. Results - Labs CBC & Chem 7: 08/31/17 05:30 08/31/17 05:30 Assessment and Plan - Plan A/P - acute pancreatitis- clinically has much improved. advanced the diet- GB sonogram with no cholelithiasis. -chest pain- has resolved. troponin negative- awaiting stress test . -hypertension; not well controlled- started on Amlodipine- received a dose of Procardia yesterday. continue to monitor. -elevated LFT's- improved overall- hepatitis panel negative- Discharge Planning: possible later today if BP stable- pending the stress test.
[2017-09-01] MEDS: Senna/Docusate Sodium 8.6/50 MG Tablet PO SCH ×2 (09:51→20:45)
[2017-09-01] MEDS: amLODIPine 10 MG Tablet PO SCH (10:17)
[2017-09-01] MEDS: Sodium Chlor 0.9% Inj 500 ML IV.CONT SCH ×2 (10:18)
[2017-09-01 10:57] LABS: Albumin 3.6 g/dL (3.4-5.0); Total Protein 7.3 g/dL (6.4-8.2)
[2017-09-01] MEDS ORDERED: Regadenoson Inj 0.4 MG/5 ML Syringe IV.PUSH ONE (11:03)
[2017-09-01] MEDS ORDERED: Sodium Chlor 0.9% Inj 500 ML IV.CONT SCH (23:00)
[2017-09-02] MEDS ORDERED: Lisinopril 5 MG Tablet PO SCH (09:00)
[2017-09-02 09:06] VITALS: RESP 17
[2017-09-02] MEDS: Senna/Docusate Sodium 8.6/50 MG Tablet PO SCH (09:41)
[2017-09-02] MEDS: amLODIPine 10 MG Tablet PO SCH (09:42)
--- NOTE | 2017-09-02 10:06 | NM ---
EXAM DATE: 09/02/2017 9:58 AM EDT AGE/SEX: 32 years / Male INDICATIONS:Angina. . Chest pain. CLINICAL DATA: This is the patient's initial encounter. Patient reports that signs and symptoms have been present for 1 day and indicates a pain score of 4/10. MEDICAL/SURGICAL HISTORY: Hypertension. . Herniated disk. COMPARISON: No prior exams available for comparison. DOSE: 30.1 mCi Tc 99m Myoview at stress 30.2 mCi [id number] at rest 0.4 mg Lexiscan STRESS SYMPTOMS: Shortness of breath. Chest pressure. EJECTION FRACTION: 60 % TECHNIQUE: The patient underwent pharmacologic stress with infusion of prescribed dose. Continuous ECG tracing was monitored during stress. Gated SPECT imaging was performed after stress and conventi onal SPECT imaging was performed at rest. The examination was performed on a SPECT/CT scanner, both attenuation and non-corrected datasets were reviewed. FINDINGS: Distribution: The maximum perfused segment at stress is in the anterior lateral wall. Perfusion Study: The pattern of perfusion at stress is within normal limits. Gated Study: There are intact wall motion and wall thickening without hypokinetic or dyskinetic segm ents. The ejection fraction is calculated at 60%. RISK CATEGORY: Low (<1% Annual Motality Rate) 1. Normal wall motion and calculated ejection fraction. 2. No fixed or reversible wall defects to suggest ischemia or infarction. Electronically signed by: Porfirio Ramos MD 09/02/2017 10:04 AM EDT
--- NOTE | 2017-09-02 10:44 | P.PNIM ---
Subjective Interval history: in no acute distress. no chest pain or sob today. afebrile. Physical Exam Vital signs: Vital Signs 09/01/17 12:00 09/01/17 16:00 09/01/17 20:00 Temperature 99.3 F 97.7 F 97.3 F L Pulse Rate 127 H 113 H 100 H Respiratory Rate 18 16 20 Blood Pressure 184/113 H 189/115 H 174/103 H Pulse Oximetry 96 95 98 09/01/17 23:44 09/02/17 00:00 09/02/17 04:00 Temperature 98.2 F Pulse Rate 94 H 91 H 80 Respiratory Rate 18 Blood Pressure 151/80 H Pulse Oximetry 96 09/02/17 04:21 09/02/17 08:00 Temperature 97.3 F L 97.3 F L Pulse Rate 97 H 112 H Respiratory Rate 20 17 Blood Pressure 162/94 H 150/98 H Pulse Oximetry 96 96 Intake & Output 09/01/17 09/02/17 09/02/17 18:59 06:59 18:59 Intake Total 480 / 480 Output Total 1450 / 1450 Balance -1450 / -1450 480 / 480 Weight 121.4 kg Intake: Oral 480 / 480 Output: Urine 1450 / 1450 Other: # Voids 4 3 Date of Last Bowel Movement 08/31/17 09/01/17 # Bowel Movements 1 - Constitutional no acute distress - Routine Respiratory Exam Present: CTA bilaterally - Routine Cardiovascular Exam Present: RRR - Routine Abdominal Exam Present: soft - Routine Extremities Exam Comments: no pedal edema. - Routine Neurological Exam Present: alert, oriented X3 Results - Labs CBC & Chem 7: 08/31/17 05:30 08/31/17 05:30 Laboratory Results - last 24 hr 09/01/17 09/01/17 09:29 14:10 D-Dimer Quant (PE/DVT) 3.47 H Total Bilirubin 1.1 H Direct Bilirubin 0.2 Indirect Bilirubin 0.9 H AST 36 ALT 70 Alkaline Phosphatase 86 Total Protein 7.3 Albumin 3.6 - Imaging Impressions Myocardial Perfusion Scan Nuc Med 09/01/17 10:08 CONCLUSION: Assessment and Plan - Plan A/P - acute pancreatitis- clinically has much improved. advanced the diet- GB sonogram with no cholelithiasis. -chest pain- with elevated d-dimer. troponin negative- stress test negative for reversible ischemia- CTA chest to r/o PE. -hypertension; not well controlled- started on Amlodipine- received a dose of Procardia yesterday. continue to monitor. -elevated LFT's- improved overall- hepatitis panel negative- Discharge Planning: dc home today if CTA pulmonary negative and BP stable.
[2017-09-02 12:12] VITALS: BP 146/94; PULSE 112; TEMP 98.1; O2SAT 97
--- NOTE | 2017-09-02 16:17 | CT ---
EXAM DATE: 09/02/2017 4:11 PM EDT AGE/SEX: 32 years / Male INDICATIONS: Shortness of breath. History of chest pain. CLINICAL DATA: This is the patient's initial encounter. Patient reports that signs and symptoms have been present for 1 day and indicates a pain score of 0/10. MEDICAL/SURGICAL HISTORY: Hypertension. cervical discectomy. None. RADIATION DOSE: 23.13 CTDI (mGy) COMPARISON: [facility] – [place], CHEST 1V SINGLE AP, 08/30/2017. . TECHNIQUE: Volumetric scanning was performed using a multi-row detector CT scanner during bolus infu mounika of 75 ml Omnipaque 350 (iohexol) nonionic water-soluble contrast as a single exam dose. The phong a was post processed with a variety of visualization algorithms including full volume maximum intensi ty projection and sliding thin slab reformation. Using automated exposure control and adjustment of t he mA and/or kV according to patient size, radiation dose was kept as low as reasonably achievable to obtain optimal diagnostic quality images. DICOM format image data is available electronically for r eview and comparison. FINDINGS: Pulmonary Arteries: No filling defects are seen in the pulmonary arteries out to the subsegmental ve ssels. The left and right pulmonary arteries are normal in diameter. Lung: No infiltrates seen. Effusion: None. Mediastinum: No evidence of mediastinal or hilar adenopathy. There is mild cardiomegaly. Other: The axilla is unremarkable. 1. No evidence of pulmonary embolism. 2. The lungs are clear with no infiltrates or effusions. 3. Mild cardiomegaly. Electronically signed by: Porfirio Ramos MD 09/02/2017 4:16 PM EDT
--- NOTE | 2017-09-02 17:32 | P.DS ---
Date of admission: 08/30/17 05:58 Primary care physician: No Primary Care Physician Brief History from admission: patient is a 32 y/o male with history of hypertension, non-compliant with the medications, presented to ER with chest pain. he says that the pain started last night. pain was midsternal with no radiation.he denies any nausea,vomiting , sob or diaphoresis. he doesn't recall any similar chest pain in the past. he says that he was on some blood pressure medication for one month, but then he lost his insurance and since then he hasn't been on any medications. DS: Medications - Discharge Medications Prescriptions: amlodipine-benazepril [Lotrel] 1 cap PO DAILY 30 Days #30 cap DS: Summary Hospital Course: patient was admitted with acute pancreatitis and chest pain. his clinical condition improved on supportive care. his stress test was negative for ischemia and CTA pulmonary was negative for PE. he will be placed on Lotrel for hypertension and he was counselled on compliance withe medication, close f/u with his pcp. - Time Spent with Patient Total time spent providing and/or coordinating discharge services: - Quality: VTE Deep Vein Thrombosis/Pulmonary Embolism Present on Admission: No Exam Vital signs: Vital Signs 09/01/17 20:00 09/01/17 23:44 09/02/17 00:00 Temperature 97.3 F L 98.2 F Pulse Rate 100 H 94 H 91 H Respiratory Rate 20 18 Blood Pressure 174/103 H 151/80 H Pulse Oximetry 98 96 09/02/17 04:00 09/02/17 04:21 09/02/17 08:00 Temperature 97.3 F L 97.3 F L Pulse Rate 80 97 H 141 H Respiratory Rate 20 17 Blood Pressure 162/94 H 150/98 H Pulse Oximetry 96 96 09/02/17 12:00 Temperature 98.1 F Pulse Rate 112 H Respiratory Rate 17 Blood Pressure 146/94 H Pulse Oximetry 97 Intake & Output 09/01/17 09/02/17 09/02/17 18:59 06:59 18:59 Intake Total 480 / 480 Output Total 1450 / 1450 Balance -1450 / -1450 480 / 480 Weight 121.4 kg Intake: Oral 480 / 480 Output: Urine 1450 / 1450 Other: # Voids 4 3 Date of Last Bowel Movement 08/31/17 09/01/17 # Bowel Movements 1 Results Procedures completed during hospitalization: none - Impressions ITS Impressions Gallbladder Ultrasound 08/30/17 00:00 CONCLUSION: 1. Suboptimal visualization. 2. Hepatic steatosis with no focal lesion identified. 3. Unremarkable appearing gallbladder with no evidence of cholelithiasis. 4. Horseshoe kidney. Chest X-Ray 08/30/17 03:23 CONCLUSION: Hypoinflation with no acute cardiopulmonary process Abdomen/Pelvis CT 08/30/17 05:23 CONCLUSION: 1. Diffuse hepatic fatty infiltration. 2. Horseshoe kidney. 3. 6.6 cm left inguinal hernia which only contains fat. 4. Otherwise, no acute intraperitoneal or pelvic process to explain current clinical symptoms. Myocardial Perfusion Scan Nuc Med 09/01/17 10:08 CONCLUSION: Chest CTA 09/02/17 00:00 CONCLUSION: Discharge Plan - Discharge Disposition Patient Disposition: 01 Discharge Home - Discharge Condition Condition: Fair - Discharge Order Discharge Orders: Discharge Order (Routine); Ordered 09/02/17 Ordered By: Geovani Lazo - Physicians Team Primary Care Provider: Primary Care Rory,Michelle Attending Provider: Geovani Lazo
== END 2017-09-02 18:22 | disposition home or self-care (01) ==
LOC: NEPE 02:40 → NEDA 05:58 → N04 08:16
PROVIDERS: ADMIT Internal Medicine; ATTEND Internal Medicine